=== PATIENT | female | born 1965 | race Hispanic/Latino ===

== ENCOUNTER 2019-03-23 06:32 | Inpatient (IN) | payer BC | END 2019-03-27 19:35 | LOC: DAHIP 06:32 → 4AH 11:35 | PROC: 0SRC0J9 Replacement of Right Knee Joint with Synthetic Substitute, Cemented, Open Approach (ICD-10-PCS; principal; 2019-03-23 09:10) | DX: M17.11 Unilateral primary osteoarthritis, right knee (principal) ==